=== PATIENT | male | born 1935 | race Caucasian/White ===

== ENCOUNTER 2018-01-30 10:13 | Inpatient (IN) ==
[2018-01-30] MEDS: ALBUTEROL 2.5 MG/3 ML NEB RESP TX SCH ×3 (11:15→11:55)
[2018-01-30 11:27] LABS: Basophils # 0.1 10*3/uL (0.0-0.2); Basophils % 0.8 % (0.0-0.8); Eosinophils # 0.1 10*3/uL (0.0-0.87); Eosinophils % 1.1 % (0.00-10.9); Hematocrit 28.2 VOL% (42.0-52.0); Hemoglobin 8.7 GM/DL (14.0-18.0); Immature Granulocytes % 0.6 %; Immature Granulocytes Absolute 0.05 #; Lymphocytes % 12.1 % (21.2-54.2); Mean Corpuscular HGB Conc 30.9 GM/DL (32-36); Mean Corpuscular Hemoglobin 28 PG (27-34); Mean Corpuscular Volume 91.6 FL (87-102); Mean Platelet Volume 11.1 FL (9.6-12.0); Monocytes # 0.6 10*3/uL (0.11-0.8); Neutrophils # 6.2 10*3/uL (1.4-7.4); Neutrophils % 78.4 % (38.7-73.9); Platelet Count 212 T/CUMM (130-400); Red Blood Count 3.08 MC/CUMM (3.8-5.5); White Blood Count 7.9 T/CUMM (4-12)
[2018-01-30 12:01] LABS: Bilirubin,Total 0.5 MG/DL (0.2-1.0); Calcium 9.6 MG/DL (8.5-10.1); Osmolality,Calculated 301.1 MOS/KG (273-304); Potassium 4.1 MMOL/L (3.5-5.1); Total Protein 6.1 G/DL (6.4-8.3)
[2018-01-30 12:20] LABS: Apearance,Urine CLEAR (Clear); Bilirubin,Urine Negative (Negative); Blood, Urine Moderate mg/dL (Negative); Glucose,Urine (UA) >=500 mg/dL (Negative); Ketones,Urine Negative (Negative); Nitrite,Urine Negative (Negative); Protein,Urine 100 MG/DL; Urine Color Straw (Yellow); Urine Specific Gravity 1.007 (1.001-1.035); Urine Urobilinogen < 2.0 EU/DL (0.2-1.0); WBC,Urine 1 /HPF (0-6)
[2018-01-30] MEDS ORDERED: FUROSEMIDE 40 MG/4 ML VIAL IV STA (12:54)
[2018-01-30] MEDS ORDERED: PANTOPRAZOLE 40 MG TABLET PO SCH (13:30)
[2018-01-30] MEDS ORDERED: MAGNESIUM SULF RIDER 4 GM in PREMIX 1 EACH IV PRN (13:42)
[2018-01-30] MEDS ORDERED: MAGNESIUM SULF RIDER 2 GM in PREMIX 1 EACH IV PRN (13:42)
[2018-01-30] MEDS ORDERED: POTASSIUM CHLORIDE RIDER 10 MEQ in PREMIX 1 EACH IV PRN (13:42)
[2018-01-30] MEDS ORDERED: POTASSIUM CHLORIDE 20 MEQ TABLET PO PRN (13:42)
[2018-01-30 14:28] LABS: % Iron Saturation 9.6 % (18-50); Ferritin 23.9 ng/ml (26-388)
[2018-01-30] MEDS ORDERED: ALBUTEROL 2.5 MG/3 ML NEB RESP TX PRN (14:30)
[2018-01-30 14:44] LABS: Folate 12.5 NG/ML (5.4-24.0)
[2018-01-30] MEDS ORDERED: CARVEDILOL 12.5 MG TABLET PO SCH (17:00)
[2018-01-30] MEDS: FUROSEMIDE 100 MG/10 ML VIAL IV SCH (17:22)
[2018-01-30] MEDS: methylPREDNISolone SOD SUC 40 MG/1 ML VIAL IV SCH ×2 (17:23→22:50)
[2018-01-30] MEDS: CARVEDILOL 25 MG TABLET PO SCH (17:23)
[2018-01-30] MEDS: ASPIRIN EC 81 MG TABLET PO SCH (17:24)
[2018-01-30] MEDS: INSULIN ASPART PROTAMINE/ASPART 70/30 100 UNIT/ML SUBCUT SCH (18:18)
[2018-01-30] MEDS: ALBUTEROL/IPRATROPIUM 3 ML NEB RESP TX SCH (18:59)
[2018-01-30] MEDS ORDERED: ENOXAPARIN 30 MG/0.3 ML SYRINGE SUBCUT SCH (21:00)
[2018-01-30] MEDS ORDERED: hydrALAZINE 25 MG TABLET PO SCH (21:00)
[2018-01-30] MEDS: ROSUVASTATIN 20 MG TABLET PO SCH (22:54)
[2018-01-30] MEDS: PROBENECID 500 MG TABLET PO SCH (22:54)
[2018-01-30] MEDS: hydrALAZINE 25 MG TABLET PO SCH (22:55)
[2018-01-31] MEDS: ALBUTEROL/IPRATROPIUM 3 ML NEB RESP TX SCH ×4 (00:43→19:37)
[2018-01-31] MEDS: methylPREDNISolone SOD SUC 40 MG/1 ML VIAL IV SCH ×4 (04:20→22:00)
[2018-01-31 05:19] LABS: Basophils % 0.1 % (0.0-0.8); Hematocrit 29.7 VOL% (42.0-52.0); Hemoglobin 9.1 GM/DL (14.0-18.0); Immature Granulocytes % 0.5 %; Immature Granulocytes Absolute 0.05 #; Lymphocytes # 0.5 10*3/uL (1.4-4.0); Lymphocytes % 5.3 % (21.2-54.2); Mean Corpuscular HGB Conc 30.6 GM/DL (32-36); Mean Corpuscular Hemoglobin 28 PG (27-34); Mean Corpuscular Volume 90.5 FL (87-102); Mean Platelet Volume 11.4 FL (9.6-12.0); Monocytes # 0.1 10*3/uL (0.11-0.8); Neutrophils # 8.7 10*3/uL (1.4-7.4); Neutrophils % 93.1 % (38.7-73.9); Platelet Count 219 T/CUMM (130-400); Red Blood Count 3.28 MC/CUMM (3.8-5.5); Red Cell Distribution Width 14.7 % (9.3-17.3); White Blood Count 9.3 T/CUMM (4-12)
[2018-01-31 05:52] LABS: Calcium 9.6 MG/DL (8.5-10.1); Osmolality,Calculated 302.4 MOS/KG (273-304)
[2018-01-31 05:56] LABS: Risk Ratio 2.13; VLDL CHOLESTEROL 9.8 MG/DL
[2018-01-31 06:02] LABS: Bilirubin,Total 0.8 MG/DL (0.2-1.0); Calcium 9.9 MG/DL (8.5-10.1); Osmolality,Calculated 301.4 MOS/KG (273-304); Thyroid Stimulating Hormone 0.702 uIU/ml (0.358-3.74); Total Protein 6.7 G/DL (6.4-8.3)
[2018-01-31 06:19] LABS: Lymphocytes 7 % (20-55); Segmented Neutrophils 92 % (50-85)
[2018-01-31 06:20] LABS: Platelet Estimate Normal; Total Cells Counted 100
[2018-01-31] MEDS ORDERED: CYANOCOBALAMIN 1000 MCG/1 ML VIAL IM ONE (09:38)
[2018-01-31] MEDS ORDERED: cefTRIAXone 1,000 MG in SYRINGE 1 EACH IV SCH (10:00)
[2018-01-31] MEDS: FUROSEMIDE 100 MG/10 ML VIAL IV SCH ×2 (10:42→16:22)
[2018-01-31] MEDS: ENOXAPARIN 120 MG/0.8 ML SYRINGE SUBCUT SCH (10:42)
[2018-01-31] MEDS: PROBENECID 500 MG TABLET PO SCH ×2 (10:42→22:52)
[2018-01-31] MEDS: ASPIRIN EC 81 MG TABLET PO SCH (10:43)
[2018-01-31] MEDS: PANTOPRAZOLE 40 MG TABLET PO SCH (10:43)
[2018-01-31] MEDS: ISOSORBIDE MONONITRATE 30 MG TABLET PO SCH (10:43)
[2018-01-31] MEDS: hydrALAZINE 25 MG TABLET PO SCH ×3 (10:44→22:52)
[2018-01-31] MEDS: INSULIN ASPART PROTAMINE/ASPART 70/30 100 UNIT/ML SUBCUT SCH ×2 (10:44→16:28)
[2018-01-31] MEDS: CARVEDILOL 25 MG TABLET PO SCH ×2 (10:44→16:28)
[2018-01-31] MEDS ORDERED: AZITHROMYCIN INJ 500 MG in SODIUM CHLORIDE 0.9% 250 ML IV SCH (11:00)
[2018-01-31] MEDS: FLUTICASONE 50 MCG NASAL SPRAY 16 GM BOTTLE BOTH NARES SCH ×2 (11:04→22:52)
[2018-01-31] MEDS: MONTELUKAST 10 MG TABLET PO SCH (11:04)
[2018-01-31] MEDS ORDERED: ZALEPLON 5 MG CAPSULE PO PRN (17:49)
[2018-01-31] MEDS: guaiFENesin 200 MG/10 ML UDCUP PO PRN (18:21)
[2018-01-31] MEDS: ROSUVASTATIN 20 MG TABLET PO SCH (22:52)
[2018-01-31] MEDS: FERROUS SULFATE 325 MG TABLET PO SCH (22:53)
[2018-02-01] MEDS: guaiFENesin 200 MG/10 ML UDCUP PO PRN ×3 (01:16→08:51)
[2018-02-01] MEDS: ALBUTEROL/IPRATROPIUM 3 ML NEB RESP TX SCH ×2 (01:41→07:23)
[2018-02-01 04:33] LABS: Calcium 9.5 MG/DL (8.5-10.1); Osmolality,Calculated 301.4 MOS/KG (273-304); Potassium 4.1 MMOL/L (3.5-5.1)
[2018-02-01] MEDS: methylPREDNISolone SOD SUC 40 MG/1 ML VIAL IV SCH (04:38)
[2018-02-01 07:17] LABS: Basophils % 0.1 % (0.0-0.8); Hematocrit 28.8 VOL% (42.0-52.0); Hemoglobin 8.9 GM/DL (14.0-18.0); Immature Granulocytes % 0.9 %; Immature Granulocytes Absolute 0.15 #; Lymphocytes # 0.6 10*3/uL (1.4-4.0); Lymphocytes % 3.3 % (21.2-54.2); Mean Corpuscular HGB Conc 30.9 GM/DL (32-36); Mean Corpuscular Hemoglobin 28 PG (27-34); Mean Corpuscular Volume 90.3 FL (87-102); Mean Platelet Volume 11.8 FL (9.6-12.0); Monocytes # 0.5 10*3/uL (0.11-0.8); Monocytes % 2.9 % (1.7-12.7); Neutrophils # 15.5 10*3/uL (1.4-7.4); Neutrophils % 92.8 % (38.7-73.9); Platelet Count 236 T/CUMM (130-400); Red Blood Count 3.19 MC/CUMM (3.8-5.5); White Blood Count 16.7 T/CUMM (4-12)
[2018-02-01 07:39] LABS: Band Neutrophils 1 % (0-10); Hypochromasia 1+; Lymphocytes 4 % (20-55); Microcytosis Slight; Segmented Neutrophils 91 % (50-85); Total Cells Counted 100
[2018-02-01 07:40] LABS: Acanthocytes Few; Ovalocytes Few; Platelet Estimate Normal
[2018-02-01 08:19] VITALS: BP 161/73
[2018-02-01] MEDS: FUROSEMIDE 100 MG/10 ML VIAL IV SCH (08:51)
[2018-02-01] MEDS: ASPIRIN EC 81 MG TABLET PO SCH (08:52)
[2018-02-01] MEDS: ISOSORBIDE MONONITRATE 30 MG TABLET PO SCH (08:52)
[2018-02-01] MEDS: CARVEDILOL 25 MG TABLET PO SCH (08:52)
[2018-02-01] MEDS: hydrALAZINE 25 MG TABLET PO SCH (08:52)
[2018-02-01] MEDS: FERROUS SULFATE 325 MG TABLET PO SCH (08:52)
[2018-02-01] MEDS: MONTELUKAST 10 MG TABLET PO SCH (08:52)
[2018-02-01] MEDS: PANTOPRAZOLE 40 MG TABLET PO SCH (08:52)
[2018-02-01] MEDS: PROBENECID 500 MG TABLET PO SCH (08:53)
[2018-02-01] MEDS: INSULIN ASPART PROTAMINE/ASPART 70/30 100 UNIT/ML SUBCUT SCH (08:54)
[2018-02-01] MEDS: ENOXAPARIN 120 MG/0.8 ML SYRINGE SUBCUT SCH (08:54)
[2018-02-01] MEDS: FLUTICASONE 50 MCG NASAL SPRAY 16 GM BOTTLE BOTH NARES SCH (08:54)
== END 2018-02-01 09:37 | disposition home or self-care (01) | DRG 291 ==
LOC: N.ED 10:13 → N.EDINP 13:26 → N.2E 14:00
PROVIDERS: ADMIT Family Medicine; ATTEND Family Medicine

== ENCOUNTER 2018-08-17 10:37 | Observation (INO) ==
[2018-08-17] MEDS ORDERED: FUROSEMIDE 100 MG/10 ML VIAL IV STA (11:28)
[2018-08-17] MEDS ORDERED: methylPREDNISolone SOD SUC 125 MG/2 ML VIAL IV STA (11:28)
[2018-08-17] MEDS ORDERED: ONDANSETRON 4 MG/2 ML VIAL IV STA (11:28)
[2018-08-17] MEDS ORDERED: ALBUTEROL/IPRATROPIUM 3 ML NEB RESP TX STA (11:28)
[2018-08-17 11:37] LABS: Basophils # 0.1 10*3/uL (0.0-0.2); Basophils % 0.4 % (0.0-0.8); Eosinophils # 0.1 10*3/uL (0.0-0.87); Eosinophils % 0.9 % (0.00-10.9); Hematocrit 39.7 VOL% (42.0-52.0); Hemoglobin 12.8 GM/DL (14.0-18.0); Immature Granulocytes % 0.8 %; Lymphocytes # 0.9 10*3/uL (1.4-4.0); Lymphocytes % 6.7 % (21.2-54.2); Mean Corpuscular HGB Conc 32.2 GM/DL (32-36); Mean Corpuscular Volume 88.6 FL (87-102); Mean Platelet Volume 11.2 FL (9.6-12.0); Monocytes % 7.8 % (1.7-12.7); Neutrophils % 83.4 % (38.7-73.9); Platelet Count 256 T/CUMM (130-400); Red Blood Count 4.48 MC/CUMM (3.8-5.5); Red Cell Distribution Width 14.9 % (9.3-17.3); White Blood Count 12.9 T/CUMM (4-12)
[2018-08-17 11:43] LABS: PT Patient Result 10.4 SECS
[2018-08-17 11:50] LABS: Albumin 3.2 G/DL (3.4-5.0); Calcium 10.1 MG/DL (8.5-10.1); Osmolality,Calculated 305.5 MOS/KG (273-304); Total Protein 6.3 G/DL (6.4-8.3)
[2018-08-17 12:32] LABS: Apearance,Urine Slightly Hazy (Clear); Bacteria,Urine Occasional /HPF (Few); Bilirubin,Urine Negative (Negative); Blood, Urine Moderate mg/dL (Negative); Glucose,Urine (UA) Negative (Negative); Ketones,Urine Negative (Negative); Nitrite,Urine Negative (Negative); Protein,Urine 100 MG/DL; RBC,Urine 1 /HPF (0-4); Squamous Epithelial Cell,Urine Occasional /HPF (0-10); Urine Color Yellow (Yellow); Urine Urobilinogen < 2.0 EU/DL (0.2-1.0); WBC,Urine 2 /HPF (0-6)
[2018-08-17] MEDS ORDERED: DEXTROSE 50% 25 GM/50 ML VIAL IV STA (13:18)
[2018-08-17] MEDS ORDERED: DEXTROSE 50% 25 GM/50 ML SYRINGE IV ONE (13:19)
[2018-08-17 13:26] LABS: ABG Base Excess -12.1 MMOL/L (-2.5-2.5); ABG HCO3 15.1 MMOL/L (20-26); ABG Oxygen Saturation 98.2 % (95-100); ABG PCO2 24.9 MM HG (35-48); ABG PH 7.316 (7.35-7.45); ABG TCO2 11.3 MMOL/L (23-27)
[2018-08-17] MEDS ORDERED: ALBUTEROL 2.5 MG/3 ML NEB RESP TX PRN (13:59)
[2018-08-17] MEDS ORDERED: IRON SUCROSE 200 MG IV SCH (14:00)
[2018-08-17] MEDS ORDERED: LEVALBUTEROL 0.31 MG/3 ML NEB RESP TX PRN (15:22)
[2018-08-17] MEDS ORDERED: SODIUM CHLORIDE 0.45% 1,000 ML IV SCH (15:30)
[2018-08-17] MEDS ORDERED: guaiFENesin/DM ER 600-30 MG TABLET PO PRN (15:49)
[2018-08-17] MEDS ORDERED: ONDANSETRON 4 MG/2 ML VIAL IV PRN (15:49)
[2018-08-17 16:35] LABS: CKMB % 6.2 %
[2018-08-17 16:37] LABS: Troponin I 0.119 NG/ML (0.00-0.045)
[2018-08-17 16:40] LABS: Risk Ratio 2.42; Thyroid Stimulating Hormone 1.13 uIU/ml (0.358-3.74); VLDL CHOLESTEROL 14.6 MG/DL
[2018-08-17] MEDS: CARVEDILOL 12.5 MG TABLET PO SCH (18:34)
[2018-08-17] MEDS ORDERED: DEXTROSE 50% 25 GM/50 ML SYRINGE IV PRN (18:43)
[2018-08-17] MEDS ORDERED: GLUCAGON 1 MG VIAL IM PRN (18:43)
[2018-08-17] MEDS: traZODone 50 MG TABLET PO PRN (20:38)
[2018-08-17] MEDS: APIXABAN 2.5 MG TABLET PO SCH (20:38)
[2018-08-17] MEDS: ROSUVASTATIN 10 MG TABLET PO SCH (20:38)
[2018-08-17] MEDS: FLUTICASONE 50 MCG NASAL SPRAY 16 GM BOTTLE BOTH NARES SCH (20:39)
[2018-08-17] MEDS: FUROSEMIDE 40 MG TABLET PO SCH (20:39)
[2018-08-18] MEDS ORDERED: ALUMINUM/MAGNES/SIMETH MAX STR 30 ML UDCUP PO PRN (01:53)
[2018-08-18] MEDS ORDERED: POTASSIUM CHLORIDE 20 MEQ TABLET PO PRN (02:15)
[2018-08-18] MEDS ORDERED: MAGNESIUM SULF RIDER 2 GM in PREMIX 1 EACH IV PRN (02:18)
[2018-08-18] MEDS ORDERED: MAGNESIUM SULF RIDER 4 GM in PREMIX 1 EACH IV PRN (02:18)
[2018-08-18 05:03] LABS: Hemoglobin 11.3 GM/DL (14.0-18.0); Immature Granulocytes % 0.7 %; Immature Granulocytes Absolute 0.07 #; Lymphocytes # 0.3 10*3/uL (1.4-4.0); Lymphocytes % 3.4 % (21.2-54.2); Mean Corpuscular HGB Conc 33.2 GM/DL (32-36); Mean Corpuscular Volume 87.2 FL (87-102); Mean Platelet Volume 11.6 FL (9.6-12.0); Monocytes % 3.2 % (1.7-12.7); Neutrophils % 92.7 % (38.7-73.9); Platelet Count 206 T/CUMM (130-400); Red Cell Distribution Width 14.9 % (9.3-17.3); White Blood Count 9.8 T/CUMM (4-12)
[2018-08-18 05:30] LABS: Hypochromasia Slight; Lymphocytes 6 % (20-55); Platelet Estimate Normal; Segmented Neutrophils 91 % (50-85); Total Cells Counted 100
[2018-08-18 05:31] LABS: Polychromasia Few
[2018-08-18 05:46] LABS: Albumin 2.7 G/DL (3.4-5.0); Bilirubin,Total 1.1 MG/DL (0.2-1.0); Calcium 9.8 MG/DL (8.5-10.1); Osmolality,Calculated 316.5 MOS/KG (273-304); Total Protein 5.8 G/DL (6.4-8.3)
[2018-08-18 05:48] LABS: CKMB % 8.5 %
[2018-08-18 05:55] LABS: Troponin I 0.099 NG/ML (0.00-0.045)
[2018-08-18] MEDS ORDERED: ALBUTEROL 0.63 MG/3 ML NEB RESP TX PRN (07:30)
[2018-08-18] MEDS ORDERED: INSULIN REGULAR 100 UNIT/ML SUBCUT SCH (08:30)
[2018-08-18] MEDS: APIXABAN 2.5 MG TABLET PO SCH ×2 (08:52→21:04)
[2018-08-18] MEDS: CARVEDILOL 12.5 MG TABLET PO SCH ×2 (08:52→18:24)
[2018-08-18] MEDS: FUROSEMIDE 40 MG TABLET PO SCH ×2 (08:53→21:04)
[2018-08-18] MEDS: FLUTICASONE 50 MCG NASAL SPRAY 16 GM BOTTLE BOTH NARES SCH ×2 (08:55→21:05)
[2018-08-18] MEDS ORDERED: LEVOFLOXACIN 250 MG TABLET PO SCH (09:00)
[2018-08-18] MEDS: SODIUM BICARB INJ 100 MEQ in SODIUM CHLORIDE 0.45% 1,000 ML IV SCH (10:04)
[2018-08-18] MEDS: PANTOPRAZOLE 40 MG TABLET PO SCH (10:09)
[2018-08-18] MEDS: INSULIN ASPART PROTAMINE/ASPART 70/30 100 UNIT/ML SUBCUT SCH (10:15)
[2018-08-18] MEDS: INSULIN LISPRO 100 UNIT/ML SUBCUT SCH ×3 (12:00→21:04)
[2018-08-18] MEDS ORDERED: INSULIN ASPART PROTAMINE/ASPART 70/30 100 UNIT/ML SUBCUT SCH (17:00)
[2018-08-18] MEDS: ASPIRIN EC 81 MG TABLET PO SCH (18:24)
[2018-08-18] MEDS: ROSUVASTATIN 10 MG TABLET PO SCH (21:04)
[2018-08-18] MEDS: traZODone 50 MG TABLET PO PRN (21:05)
[2018-08-19] MEDS: PANTOPRAZOLE 40 MG TABLET PO SCH (08:51)
[2018-08-19] MEDS: CARVEDILOL 12.5 MG TABLET PO SCH (08:51)
[2018-08-19] MEDS: ASPIRIN EC 81 MG TABLET PO SCH (08:51)
[2018-08-19] MEDS: APIXABAN 2.5 MG TABLET PO SCH (08:52)
[2018-08-19] MEDS: FUROSEMIDE 40 MG TABLET PO SCH (08:52)
[2018-08-19] MEDS: SODIUM BICARB INJ 100 MEQ in SODIUM CHLORIDE 0.45% 1,000 ML IV SCH (08:52)
[2018-08-19] MEDS: INSULIN ASPART PROTAMINE/ASPART 70/30 100 UNIT/ML SUBCUT SCH (08:53)
[2018-08-19] MEDS: INSULIN LISPRO 100 UNIT/ML SUBCUT SCH ×2 (08:53→12:07)
[2018-08-19] MEDS: FLUTICASONE 50 MCG NASAL SPRAY 16 GM BOTTLE BOTH NARES SCH (08:58)
[2018-08-19 09:19] LABS: Calcium 9.6 MG/DL (8.5-10.1); Osmolality,Calculated 318.8 MOS/KG (273-304)
[2018-08-19 16:07] VITALS: BP 141/79
[2018-08-19] MEDS ORDERED: CARVEDILOL 25 MG TABLET PO SCH (17:00)
[2018-09-11] MEDS ORDERED: IRON SUCROSE 200 MG in SODIUM CHLORIDE 0.9% 100 ML IV SCH (09:00)
== END 2018-08-19 17:18 | disposition home or self-care (01) ==
LOC: N.EDINP 10:37 → N.ED 10:37 → N.2E 17:51
PROVIDERS: ADMIT Internal Medicine; ATTEND Internal Medicine

== ENCOUNTER 2018-12-10 12:27 | Inpatient (IN) ==
[2018-12-10 12:59] LABS: Basophils # 0.1 10*3/uL (0.0-0.2); Basophils % 0.7 % (0.0-0.8); Eosinophils # 0.2 10*3/uL (0.0-0.87); Eosinophils % 1.3 % (0.00-10.9); Hematocrit 35.1 VOL% (42.0-52.0); Hemoglobin 11.4 GM/DL (14.0-18.0); Immature Granulocytes % 0.7 %; Immature Granulocytes Absolute 0.08 #; Lymphocytes # 1.2 10*3/uL (1.4-4.0); Mean Corpuscular HGB Conc 32.5 GM/DL (32-36); Mean Corpuscular Volume 92.9 FL (87-102); Mean Platelet Volume 10.5 FL (9.6-12.0); Monocytes % 6.5 % (1.7-12.7); Neutrophils % 80.8 % (38.7-73.9); Platelet Count 284 T/CUMM (130-400); Red Blood Count 3.78 MC/CUMM (3.8-5.5); Red Cell Distribution Width 13.2 % (9.3-17.3)
[2018-12-10 13:15] LABS: Albumin 3.4 G/DL (3.4-5.0); Bilirubin,Total 0.5 MG/DL (0.2-1.0); Calcium 10.4 MG/DL (8.5-10.1); Osmolality,Calculated 298.7 MOS/KG (273-304); Total Protein 6.8 G/DL (6.4-8.3)
[2018-12-10] MEDS ORDERED: ONDANSETRON 4 MG/2 ML VIAL IV STA (13:22)
[2018-12-10] MEDS ORDERED: DEXTROSE 50% 25 GM/50 ML VIAL IV PRN (14:28)
[2018-12-10] MEDS ORDERED: GLUCAGON 1 MG VIAL IM PRN ×2 (14:28→14:56)
[2018-12-10] MEDS ORDERED: LACTULOSE 20 GM/30 ML UDCUP PO PRN (14:28)
[2018-12-10] MEDS ORDERED: ONDANSETRON 4 MG/2 ML VIAL IV PRN (14:28)
[2018-12-10 14:56] LABS: Risk Ratio 2.77
[2018-12-10] MEDS ORDERED: DEXTROSE 10% 25 GM/250 ML BAG IV PRN (14:56)
[2018-12-10] MEDS ORDERED: INSULIN ASPART PROTAMINE/ASPART 70/30 100 UNIT/ML SUBCUT SCH ×2 (17:00)
[2018-12-10] MEDS: SODIUM CHLORIDE 0.9% 1,000 ML IV SCH (17:51)
[2018-12-10] MEDS: CARVEDILOL 12.5 MG TABLET PO SCH (17:51)
[2018-12-10] MEDS: INSULIN REGULAR 100 UNIT/ML SUBCUT SCH ×2 (17:51→21:54)
[2018-12-10] MEDS ORDERED: ALBUTEROL 2.5 MG/3 ML NEB RESP TX PRN (19:00)
[2018-12-10 19:16] LABS: Apearance,Urine CLEAR (Clear); Bacteria,Urine Occasional /HPF (Few); Bilirubin,Urine Negative (Negative); Blood, Urine Small mg/dL (Negative); Glucose,Urine (UA) >=500 mg/dL (Negative); Ketones,Urine Negative (Negative); Nitrite,Urine Negative (Negative); Protein,Urine >=500 MG/DL; RBC,Urine 3 /HPF (0-4); Squamous Epithelial Cell,Urine Occasional /HPF (0-10); Urine Color Yellow (Yellow); Urine Specific Gravity 1.013 (1.001-1.035); Urine Urobilinogen < 2.0 EU/DL (0.2-1.0); WBC,Urine 3 /HPF (0-6)
[2018-12-10] MEDS ORDERED: traZODone 50 MG TABLET PO SCH (21:00)
[2018-12-10] MEDS ORDERED: ROSUVASTATIN 10 MG TABLET PO SCH (21:00)
[2018-12-10] MEDS: APIXABAN 2.5 MG TABLET PO SCH (22:41)
[2018-12-11] MEDS ORDERED: SODIUM CHLORIDE 0.65% NASAL SPRAY 45 ML BOTTLE BOTH NARES PRN (02:35)
[2018-12-11 06:08] LABS: Basophils # 0.1 10*3/uL (0.0-0.2); Basophils % 0.4 % (0.0-0.8); Eosinophils # 0.2 10*3/uL (0.0-0.87); Eosinophils % 1.9 % (0.00-10.9); Hematocrit 31.5 VOL% (42.0-52.0); Hemoglobin 10.3 GM/DL (14.0-18.0); Immature Granulocytes % 0.6 %; Immature Granulocytes Absolute 0.07 #; Lymphocytes # 1.5 10*3/uL (1.4-4.0); Lymphocytes % 12.7 % (21.2-54.2); Mean Corpuscular HGB Conc 32.7 GM/DL (32-36); Mean Corpuscular Volume 93.8 FL (87-102); Mean Platelet Volume 10.5 FL (9.6-12.0); Monocytes % 6.1 % (1.7-12.7); Neutrophils % 78.3 % (38.7-73.9); Platelet Count 229 T/CUMM (130-400); Red Blood Count 3.36 MC/CUMM (3.8-5.5); Red Cell Distribution Width 13.4 % (9.3-17.3); White Blood Count 11.9 T/CUMM (4-12)
[2018-12-11] MEDS: SODIUM CHLORIDE 0.9% 1,000 ML IV SCH (06:08)
[2018-12-11 06:45] LABS: Calcium 9.9 MG/DL (8.5-10.1); Osmolality,Calculated 306.7 MOS/KG (273-304)
[2018-12-11] MEDS ORDERED: INSULIN ASPART PROTAMINE/ASPART 70/30 100 UNIT/ML SUBCUT SCH ×2 (08:00)
[2018-12-11] MEDS: CARVEDILOL 12.5 MG TABLET PO SCH ×2 (08:43→18:56)
[2018-12-11] MEDS: APIXABAN 2.5 MG TABLET PO SCH (08:43)
[2018-12-11] MEDS: INSULIN REGULAR 100 UNIT/ML SUBCUT SCH ×3 (08:44→18:55)
[2018-12-11] MEDS ORDERED: PANTOPRAZOLE 40 MG TABLET PO SCH (09:00)
[2018-12-11] MEDS ORDERED: ASPIRIN EC 81 MG TABLET PO SCH (13:32)
[2018-12-11 16:41] VITALS: BP 192/82
== END 2018-12-11 17:36 | disposition home or self-care (01) | DRG 312 ==
LOC: EDBD → EDUNIT# → N.ED 12:27 → N.EDINP 12:27 → N.TELEN 15:12
PROVIDERS: ADMIT Hospitalist; ATTEND Hospitalist

== ENCOUNTER 2019-02-21 02:23 | Inpatient (IN) ==
[2019-02-21] MEDS ORDERED: ONDANSETRON 4 MG/2 ML VIAL IV STA (02:59)
[2019-02-21] MEDS ORDERED: SODIUM CHLORIDE 0.9% 1,000 ML IV STA (02:59)
[2019-02-21] MEDS ORDERED: KETOROLAC 30 MG/1 ML VIAL IV STA (02:59)
[2019-02-21] MEDS ORDERED: HYDROmorphone 2 MG/1 ML VIAL IV STA (03:29)
[2019-02-21 03:54] LABS: Basophils # 0.1 10*3/uL (0.0-0.2); Basophils % 0.5 % (0.0-0.8); Eosinophils # 0.2 10*3/uL (0.0-0.87); Eosinophils % 1.3 % (0.00-10.9); Hematocrit 33.8 VOL% (42.0-52.0); Hemoglobin 10.9 GM/DL (14.0-18.0); Immature Granulocytes % 0.5 %; Immature Granulocytes Absolute 0.07 #; Lymphocytes # 0.8 10*3/uL (1.4-4.0); Lymphocytes % 6.3 % (21.2-54.2); Mean Corpuscular HGB Conc 32.2 GM/DL (32-36); Mean Corpuscular Volume 89.7 FL (87-102); Mean Platelet Volume 10.8 FL (9.6-12.0); Monocytes % 5.8 % (1.7-12.7); Neutrophils % 85.6 % (38.7-73.9); Platelet Count 262 T/CUMM (130-400); Red Blood Count 3.77 MC/CUMM (3.8-5.5); Red Cell Distribution Width 14.6 % (9.3-17.3); White Blood Count 12.9 T/CUMM (4-12)
[2019-02-21 04:21] LABS: Albumin 3.2 G/DL (3.4-5.0); Bilirubin,Total 0.9 MG/DL (0.2-1.0); Calcium 10.5 MG/DL (8.5-10.1); Osmolality,Calculated 288.1 MOS/KG (273-304); Total Protein 6.9 G/DL (6.4-8.3)
[2019-02-21 05:38] LABS: Amorphous Crystals,Urine Occasional /HPF (Few); Apearance,Urine CLEAR (Clear); Bilirubin,Urine Negative (Negative); Blood, Urine Small mg/dL (Negative); Glucose,Urine (UA) 150 mg/dL (Negative); Ketones,Urine Negative (Negative); Mucus,Urine Occasional /LPF (Occasional); Nitrite,Urine Negative (Negative); Protein,Urine 100 MG/DL; RBC,Urine 1 /HPF (0-4); Squamous Epithelial Cell,Urine Occasional /HPF (0-10); Urine Color Yellow (Yellow); Urine Specific Gravity 1.012 (1.001-1.035); Urine Urobilinogen < 2.0 EU/DL (0.2-1.0); WBC,Urine 1 /HPF (0-6)
[2019-02-21] MEDS ORDERED: ONDANSETRON 4 MG/2 ML VIAL IV PRN (05:38)
[2019-02-21] MEDS ORDERED: DEXTROSE 50% 25 GM/50 ML VIAL IV PRN (05:48)
[2019-02-21] MEDS ORDERED: GLUCAGON 1 MG VIAL IM PRN (05:48)
[2019-02-21] MEDS: PIPERACILLIN/TAZOBACTAM 3,375 MG in SODIUM CHLORIDE 0.9% 100 ML IV SCH ×2 (08:30→17:56)
[2019-02-21] MEDS ORDERED: INFLUENZA VIRUS VACCINE 0.5 ML SYRINGE IM ONE (09:58)
[2019-02-21] MEDS: INSULIN REGULAR 100 UNIT/ML SUBCUT SCH ×5 (10:27→20:18)
[2019-02-21] MEDS ORDERED: ALBUTEROL 2.5 MG/3 ML NEB RESP TX PRN (15:11)
[2019-02-21] MEDS ORDERED: DARBEPOETIN ALFA 200 MCG/ML VIAL SUBCUT SCH (15:30)
[2019-02-21] MEDS: carvediloL 12.5 MG TABLET PO SCH (16:37)
[2019-02-21] MEDS: ROSUVASTATIN 10 MG TABLET PO SCH (20:16)
[2019-02-21] MEDS: traZODone 50 MG TABLET PO SCH (20:17)
[2019-02-21] MEDS: HYDROmorphone 2 MG/1 ML VIAL IV PRN (20:17)
[2019-02-21] MEDS ORDERED: PROBENECID 500 MG TABLET PO SCH (21:00)
[2019-02-22] MEDS: traMADol 50 MG TABLET PO PRN (01:23)
[2019-02-22 04:52] LABS: Basophils # 0.1 10*3/uL (0.0-0.2); Basophils % 0.3 % (0.0-0.8); Eosinophils # 0.1 10*3/uL (0.0-0.87); Eosinophils % 0.3 % (0.00-10.9); Hematocrit 32.7 VOL% (42.0-52.0); Hemoglobin 10.3 GM/DL (14.0-18.0); Immature Granulocytes % 0.6 %; Immature Granulocytes Absolute 0.12 #; Lymphocytes # 0.7 10*3/uL (1.4-4.0); Lymphocytes % 3.4 % (21.2-54.2); Mean Corpuscular HGB Conc 31.5 GM/DL (32-36); Mean Corpuscular Volume 91.3 FL (87-102); Mean Platelet Volume 10.8 FL (9.6-12.0); Monocytes % 8.1 % (1.7-12.7); Neutrophils % 87.3 % (38.7-73.9); Platelet Count 231 T/CUMM (130-400); Red Blood Count 3.58 MC/CUMM (3.8-5.5); Red Cell Distribution Width 14.8 % (9.3-17.3); White Blood Count 19.7 T/CUMM (4-12)
[2019-02-22 05:22] LABS: Band Neutrophils 4 % (0-10); Lymphocytes 4 % (20-55); Segmented Neutrophils 85 % (50-85); Total Cells Counted 100
[2019-02-22 05:23] LABS: Acanthocytes Few; Hypochromasia Slight; Microcytosis Slight; Ovalocytes Slight; Platelet Estimate Normal
[2019-02-22 05:24] LABS: Albumin 2.9 G/DL (3.4-5.0); Bilirubin,Total 1.2 MG/DL (0.2-1.0); Calcium 9.9 MG/DL (8.5-10.1); Osmolality,Calculated 297.7 MOS/KG (273-304); Total Protein 6.5 G/DL (6.4-8.3)
[2019-02-22] MEDS: PIPERACILLIN/TAZOBACTAM 3,375 MG in SODIUM CHLORIDE 0.9% 100 ML IV SCH ×2 (05:42→18:32)
[2019-02-22] MEDS: HYDROmorphone 2 MG/1 ML VIAL IV PRN (05:44)
[2019-02-22] MEDS ORDERED: MIDAZOLAM 2 MG/2 ML VIAL IV ONE (08:50)
[2019-02-22] MEDS ORDERED: fentaNYL 100 MCG/2 ML VIAL IV ONE (08:50)
[2019-02-22 09:13] LABS: INR 1.2; PT Patient Result 12.5 SECS (9.6-12.2)
[2019-02-22] MEDS ORDERED: MAGNESIUM SULF RIDER 2 GM in PREMIX 1 EACH IV ONE (09:39)
[2019-02-22] MEDS: INSULIN REGULAR 100 UNIT/ML SUBCUT SCH ×3 (14:04→22:11)
[2019-02-22] MEDS: PANTOPRAZOLE 40 MG TABLET PO SCH (14:11)
[2019-02-22] MEDS: FUROSEMIDE 40 MG TABLET PO SCH (14:11)
[2019-02-22] MEDS: carvediloL 12.5 MG TABLET PO SCH ×2 (14:11→18:32)
[2019-02-22] MEDS: traZODone 50 MG TABLET PO SCH (21:14)
[2019-02-22] MEDS: ROSUVASTATIN 10 MG TABLET PO SCH (21:14)
[2019-02-23] MEDS: PIPERACILLIN/TAZOBACTAM 3,375 MG in SODIUM CHLORIDE 0.9% 100 ML IV SCH ×2 (05:19→18:11)
[2019-02-23 06:08] LABS: Basophils % 0.3 % (0.0-0.8); Eosinophils # 0.2 10*3/uL (0.0-0.87); Eosinophils % 1.7 % (0.00-10.9); Hematocrit 29.7 VOL% (42.0-52.0); Hemoglobin 9.4 GM/DL (14.0-18.0); Immature Granulocytes % 0.6 %; Immature Granulocytes Absolute 0.07 #; Lymphocytes # 0.9 10*3/uL (1.4-4.0); Lymphocytes % 7.7 % (21.2-54.2); Mean Corpuscular HGB Conc 31.6 GM/DL (32-36); Mean Platelet Volume 10.7 FL (9.6-12.0); Monocytes % 7.3 % (1.7-12.7); Neutrophils % 82.4 % (38.7-73.9); Platelet Count 181 T/CUMM (130-400); Red Blood Count 3.23 MC/CUMM (3.8-5.5); Red Cell Distribution Width 14.8 % (9.3-17.3); White Blood Count 12.1 T/CUMM (4-12)
[2019-02-23 06:54] LABS: Calcium 9.2 MG/DL (8.5-10.1); Osmolality,Calculated 291.1 MOS/KG (273-304)
[2019-02-23] MEDS: PANTOPRAZOLE 40 MG TABLET PO SCH (08:21)
[2019-02-23] MEDS: carvediloL 12.5 MG TABLET PO SCH ×2 (08:21→18:05)
[2019-02-23] MEDS: FUROSEMIDE 40 MG TABLET PO SCH (08:21)
[2019-02-23] MEDS: INSULIN REGULAR 100 UNIT/ML SUBCUT SCH ×4 (10:55→21:27)
[2019-02-23] MEDS: SODIUM BICARB INJ 100 MEQ in STERILE WATER INJ 1,000 ML IV SCH (15:00)
[2019-02-23] MEDS: traZODone 50 MG TABLET PO SCH (21:26)
[2019-02-23] MEDS: traMADol 50 MG TABLET PO PRN (21:26)
[2019-02-23] MEDS: ROSUVASTATIN 10 MG TABLET PO SCH (21:26)
[2019-02-24 05:26] LABS: Basophils % 0.4 % (0.0-0.8); Eosinophils # 0.2 10*3/uL (0.0-0.87); Eosinophils % 2.1 % (0.00-10.9); Hematocrit 28.1 VOL% (42.0-52.0); Immature Granulocytes % 0.7 %; Immature Granulocytes Absolute 0.07 #; Lymphocytes % 9.5 % (21.2-54.2); Mean Corpuscular Volume 90.4 FL (87-102); Mean Platelet Volume 10.6 FL (9.6-12.0); Monocytes % 7.8 % (1.7-12.7); Neutrophils % 79.5 % (38.7-73.9); Platelet Count 201 T/CUMM (130-400); Red Blood Count 3.11 MC/CUMM (3.8-5.5); Red Cell Distribution Width 14.8 % (9.3-17.3); White Blood Count 10.3 T/CUMM (4-12)
[2019-02-24 05:44] LABS: Calcium 9.6 MG/DL (8.5-10.1); Osmolality,Calculated 299.1 MOS/KG (273-304)
[2019-02-24] MEDS: PIPERACILLIN/TAZOBACTAM 3,375 MG in SODIUM CHLORIDE 0.9% 100 ML IV SCH (05:44)
[2019-02-24] MEDS: FUROSEMIDE 40 MG TABLET PO SCH (09:28)
[2019-02-24] MEDS: INSULIN REGULAR 100 UNIT/ML SUBCUT SCH ×4 (09:28→20:39)
[2019-02-24] MEDS: carvediloL 12.5 MG TABLET PO SCH ×2 (09:29→18:27)
[2019-02-24] MEDS: PANTOPRAZOLE 40 MG TABLET PO SCH (09:29)
[2019-02-24] MEDS ORDERED: TUBERCULIN SKIN TEST 0.1 ML SYRINGE INTRADERM ONE (11:25)
[2019-02-24] MEDS: SODIUM BICARB INJ 100 MEQ in STERILE WATER INJ 1,000 ML IV SCH ×2 (13:34→20:46)
[2019-02-24] MEDS: LEVOFLOXACIN 250 MG TABLET PO SCH (18:27)
[2019-02-24] MEDS: ROSUVASTATIN 10 MG TABLET PO SCH (20:38)
[2019-02-24] MEDS: traZODone 50 MG TABLET PO SCH (20:38)
[2019-02-24] MEDS: traMADol 50 MG TABLET PO PRN (20:39)
[2019-02-25 08:24] LABS: Calcium 9.8 MG/DL (8.5-10.1); Osmolality,Calculated 290.4 MOS/KG (273-304)
[2019-02-25] MEDS: FUROSEMIDE 40 MG TABLET PO SCH (10:05)
[2019-02-25] MEDS: carvediloL 12.5 MG TABLET PO SCH ×2 (10:05→17:40)
[2019-02-25] MEDS: PANTOPRAZOLE 40 MG TABLET PO SCH (10:05)
[2019-02-25] MEDS: LEVOFLOXACIN 250 MG TABLET PO SCH (10:05)
[2019-02-25] MEDS: SODIUM BICARB INJ 100 MEQ in STERILE WATER INJ 1,000 ML IV SCH (10:06)
[2019-02-25] MEDS: INSULIN REGULAR 100 UNIT/ML SUBCUT SCH ×4 (10:06→21:17)
[2019-02-25] MEDS: ROSUVASTATIN 10 MG TABLET PO SCH (21:17)
[2019-02-25] MEDS: SODIUM BICARBONATE 650 MG TABLET PO SCH (21:17)
[2019-02-25] MEDS: traZODone 50 MG TABLET PO SCH (21:17)
[2019-02-26] MEDS: SODIUM BICARBONATE 650 MG TABLET PO SCH (09:56)
[2019-02-26] MEDS: FUROSEMIDE 40 MG TABLET PO SCH (09:57)
[2019-02-26] MEDS: PANTOPRAZOLE 40 MG TABLET PO SCH (09:57)
[2019-02-26] MEDS: LEVOFLOXACIN 250 MG TABLET PO SCH (09:57)
[2019-02-26] MEDS: carvediloL 12.5 MG TABLET PO SCH (09:57)
[2019-02-26] MEDS: INSULIN REGULAR 100 UNIT/ML SUBCUT SCH ×2 (09:57→11:27)
[2019-02-26 11:33] VITALS: BP 166/75
[2019-02-26] MEDS ORDERED: FUROSEMIDE 40 MG TABLET PO SCH (16:00)
== END 2019-02-26 14:22 | disposition hospice, home (50) | DRG 445 ==
LOC: N.EDINP 02:23 → N.ED 02:23 → SUATTDRO 05:38 → N.2W 06:49 → SUATTDRO 11:09 → N.3E 17:16
PROVIDERS: ADMIT Internal Medicine; ATTEND Internal Medicine Cardiovascular Disease

== ENCOUNTER 2019-04-21 12:16 | Observation (INO) ==
[2019-04-21 14:06] LABS: Basophils # 0.1 10*3/uL (0.0-0.2); Basophils % 0.6 % (0.0-0.8); Eosinophils # 0.2 10*3/uL (0.0-0.87); Eosinophils % 2.2 % (0.00-10.9); Hemoglobin 7.9 GM/DL (14.0-18.0); Immature Granulocytes % 0.5 %; Immature Granulocytes Absolute 0.05 #; Mean Corpuscular HGB Conc 31.6 GM/DL (32-36); Mean Corpuscular Volume 92.9 FL (87-102); Mean Platelet Volume 10.4 FL (9.6-12.0); Monocytes % 7.5 % (1.7-12.7); Neutrophils % 80.2 % (38.7-73.9); Platelet Count 288 T/CUMM (130-400); Red Blood Count 2.69 MC/CUMM (3.8-5.5); Red Cell Distribution Width 15.3 % (9.3-17.3)
[2019-04-21 14:15] LABS: INR 1.1; PT Patient Result 11.7 SECS (9.6-12.2); Partial Thromboplastin Time 30.3 SECS (20.8-36.0)
[2019-04-21 14:29] LABS: Alanine Aminotransferase 9 U/L (16-61); Albumin 2.7 G/DL (3.4-5.0); Alkaline Phosphatase 115 U/L (45-117); Aspartate Amino Transferase 4 U/L (0-37); Blood Urea Nitrogen 59 MG/DL (7-18); Calcium 9.8 MG/DL (8.5-10.1); Estimated Glom Filtration Rate 10 ML/MIN; Glucose 182 MG/DL (74-106); Total Protein 6.6 G/DL (6.4-8.3)
[2019-04-21 14:31] LABS: Troponin I 0.058 NG/ML (0.00-0.045)
[2019-04-21 15:00] LABS: Apearance,Urine CLEAR (Clear); Bilirubin,Urine Negative (Negative); Blood, Urine Small mg/dL (Negative); Glucose,Urine (UA) >=500 mg/dL (Negative); Ketones,Urine Negative (Negative); Mucus,Urine Occasional /LPF (Occasional); Nitrite,Urine Negative (Negative); Protein,Urine 100 MG/DL; RBC,Urine <1 /HPF (0-4); Urine Color Yellow (Yellow); Urine Urobilinogen < 2.0 EU/DL (0.2-1.0); WBC,Urine 1 /HPF (0-6)
[2019-04-21] MEDS ORDERED: ONDANSETRON 4 MG/2 ML VIAL IV PRN (16:26)
[2019-04-21] MEDS ORDERED: LACTULOSE 20 GM/30 ML UDCUP PO PRN (16:26)
[2019-04-21] MEDS ORDERED: ZALEPLON 5 MG CAPSULE PO PRN (16:30)
[2019-04-21] MEDS ORDERED: SODIUM CHLORIDE 0.9% 1,000 ML IV PRN (16:30)
[2019-04-21] MEDS ORDERED: GLUCAGON 1 MG VIAL IM PRN (16:31)
[2019-04-21] MEDS ORDERED: DEXTROSE 50% 25 GM/50 ML VIAL IV PRN (16:31)
[2019-04-21] MEDS ORDERED: hydrALAZINE 20 MG/1 ML VIAL IV ONE (17:56)
[2019-04-21] MEDS ORDERED: hydrALAZINE 20 MG/1 ML VIAL IV PRN (17:56)
[2019-04-21] MEDS ORDERED: traMADol 50 MG TABLET PO PRN (20:23)
[2019-04-21] MEDS ORDERED: ROSUVASTATIN 20 MG TABLET PO SCH (21:00)
[2019-04-21] MEDS ORDERED: traZODone 50 MG TABLET PO SCH (21:00)
[2019-04-21] MEDS: INSULIN LISPRO 100 UNIT/ML SUBCUT SCH (21:48)
[2019-04-21] MEDS: PROBENECID 500 MG TABLET PO SCH (22:59)
[2019-04-22 05:25] LABS: Basophils # 0.1 10*3/uL (0.0-0.2); Basophils % 0.6 % (0.0-0.8); Eosinophils # 0.3 10*3/uL (0.0-0.87); Eosinophils % 2.4 % (0.00-10.9); Hematocrit 28.7 VOL% (42.0-52.0); Hemoglobin 9.5 GM/DL (14.0-18.0); Immature Granulocytes % 0.4 %; Immature Granulocytes Absolute 0.04 #; Lymphocytes # 1.1 10*3/uL (1.4-4.0); Lymphocytes % 10.6 % (21.2-54.2); Mean Corpuscular HGB Conc 33.1 GM/DL (32-36); Mean Corpuscular Volume 89.1 FL (87-102); Mean Platelet Volume 10.6 FL (9.6-12.0); Monocytes % 8.3 % (1.7-12.7); Neutrophils % 77.7 % (38.7-73.9); Platelet Count 265 T/CUMM (130-400); Red Blood Count 3.22 MC/CUMM (3.8-5.5); White Blood Count 10.7 T/CUMM (4-12)
[2019-04-22 06:04] LABS: Alanine Aminotransferase < 9 U/L (16-61); Albumin 2.5 G/DL (3.4-5.0); Alkaline Phosphatase 92 U/L (45-117); Aspartate Amino Transferase 8 U/L (0-37); Blood Urea Nitrogen 62 MG/DL (7-18); Calcium 9.9 MG/DL (8.5-10.1); Estimated Glom Filtration Rate 10 ML/MIN; Glucose 106 MG/DL (74-106); Osmolality,Calculated 292.7 MOS/KG (273-304); Total Protein 6.2 G/DL (6.4-8.3)
[2019-04-22] MEDS: INSULIN LISPRO 100 UNIT/ML SUBCUT SCH (07:37)
[2019-04-22] MEDS ORDERED: carvediloL 12.5 MG TABLET PO SCH (08:00)
[2019-04-22] MEDS ORDERED: INSULIN ASPART PROTAMINE/ASPART 70/30 100 UNIT/ML SUBCUT SCH ×2 (08:00→17:00)
[2019-04-22 08:14] VITALS: BP 171/61
[2019-04-22] MEDS ORDERED: FUROSEMIDE 40 MG TABLET PO SCH (09:00)
[2019-04-22] MEDS: PROBENECID 500 MG TABLET PO SCH (11:06)
== END 2019-04-22 11:14 | disposition home health service (06) ==
LOC: N.ED 12:16 → N.EDINP 12:16 → N.2E 17:29
PROVIDERS: ADMIT Internal Medicine; ATTEND Internal Medicine

== ENCOUNTER 2019-05-27 18:45 | Inpatient (IN) ==
[2019-05-27] MEDS ORDERED: SODIUM CHLORIDE 0.9% 2,000 ML IV STA (20:39)
[2019-05-27 20:40] LABS: Basophils # 0.1 10*3/uL (0.0-0.2); Basophils % 0.8 % (0.0-0.8); Eosinophils # 0.3 10*3/uL (0.0-0.87); Eosinophils % 2.4 % (0.00-10.9); Hematocrit 29.2 VOL% (42.0-52.0); Hemoglobin 9.2 GM/DL (14.0-18.0); Immature Granulocytes % 0.7 %; Immature Granulocytes Absolute 0.08 #; Lymphocytes % 8.5 % (21.2-54.2); Mean Corpuscular HGB Conc 31.5 GM/DL (32-36); Mean Corpuscular Volume 94.2 FL (87-102); Mean Platelet Volume 10.9 FL (9.6-12.0); Monocytes % 7.7 % (1.7-12.7); Neutrophils % 79.9 % (38.7-73.9); Platelet Count 259 T/CUMM (130-400); Red Cell Distribution Width 16.2 % (9.3-17.3); White Blood Count 11.6 T/CUMM (4-12)
[2019-05-27 20:59] LABS: Albumin 2.9 G/DL (3.4-5.0); Bilirubin,Total 0.7 MG/DL (0.2-1.0); Calcium 9.8 MG/DL (8.5-10.1); Total Protein 6.9 G/DL (6.4-8.3)
[2019-05-27 21:14] LABS: Amorphous Crystals,Urine Occasional /HPF (Few); Apearance,Urine CLEAR (Clear); Bilirubin,Urine Negative (Negative); Blood, Urine Small mg/dL (Negative); Glucose,Urine (UA) >=500 mg/dL (Negative); Ketones,Urine Negative (Negative); Mucus,Urine Occasional /LPF (Occasional); Nitrite,Urine Negative (Negative); Protein,Urine 100 MG/DL; RBC,Urine 2 /HPF (0-4); Urine Color Yellow (Yellow); Urine Urobilinogen < 2.0 EU/DL (0.2-1.0); WBC,Urine 2 /HPF (0-6)
[2019-05-27 21:27] LABS: CKMB % 5.8 %; Troponin I 0.084 NG/ML (0.00-0.045)
[2019-05-27] MEDS ORDERED: DOCUSATE SODIUM 100 MG CAPSULE PO PRN (22:29)
[2019-05-27] MEDS ORDERED: GLUCAGON 1 MG VIAL IM PRN (22:29)
[2019-05-27] MEDS ORDERED: ONDANSETRON 4 MG/2 ML VIAL IV PRN (22:29)
[2019-05-27] MEDS ORDERED: DEXTROSE 50% 25 GM/50 ML SYRINGE IV PRN (22:29)
[2019-05-27] MEDS ORDERED: SODIUM CHLORIDE 0.9% 1,000 ML IV SCH (22:30)
[2019-05-27] MEDS ORDERED: ENOXAPARIN 30 MG/0.3 ML SYRINGE SUBCUT SCH (22:30)
[2019-05-27] MEDS ORDERED: DEXTROSE 10% 250 ML BAG IV PRN (22:49)
[2019-05-28] MEDS: cefTRIAXone 1,000 MG in SYRINGE 1 EACH IV SCH (00:46)
[2019-05-28 00:49] LABS: Basophils # 0.1 10*3/uL (0.0-0.2); Basophils % 0.8 % (0.0-0.8); Eosinophils # 0.3 10*3/uL (0.0-0.87); Hematocrit 27.7 VOL% (42.0-52.0); Hemoglobin 8.7 GM/DL (14.0-18.0); Immature Granulocytes % 0.5 %; Immature Granulocytes Absolute 0.06 #; Lymphocytes # 0.9 10*3/uL (1.4-4.0); Lymphocytes % 7.7 % (21.2-54.2); Mean Corpuscular HGB Conc 31.4 GM/DL (32-36); Mean Corpuscular Volume 93.6 FL (87-102); Monocytes % 9.2 % (1.7-12.7); Neutrophils % 78.8 % (38.7-73.9); Platelet Count 253 T/CUMM (130-400); Red Blood Count 2.96 MC/CUMM (3.8-5.5); Red Cell Distribution Width 16.3 % (9.3-17.3)
[2019-05-28 01:04] LABS: Calcium 9.8 MG/DL (8.5-10.1); Osmolality,Calculated 295.1 MOS/KG (273-304)
[2019-05-28] MEDS: INSULIN LISPRO 100 UNIT/ML SUBCUT SCH ×5 (02:15→20:57)
[2019-05-28] MEDS ORDERED: FUROSEMIDE 40 MG TABLET PO SCH (09:00)
[2019-05-28] MEDS ORDERED: PANTOPRAZOLE 40 MG TABLET PO SCH (09:00)
[2019-05-28] MEDS: APIXABAN 2.5 MG TABLET PO SCH ×2 (09:29→21:00)
[2019-05-28] MEDS: carvediloL 12.5 MG TABLET PO SCH ×2 (09:29→16:53)
[2019-05-28] MEDS: ASPIRIN EC 81 MG TABLET PO SCH (09:29)
[2019-05-28] MEDS: ACETAMINOPHEN 325 MG TABLET PO PRN ×3 (09:31→22:58)
[2019-05-28] MEDS: FUROSEMIDE 40 MG/4 ML VIAL IV SCH (17:44)
[2019-05-28] MEDS ORDERED: ROSUVASTATIN 10 MG TABLET PO SCH (21:00)
[2019-05-29] MEDS: ACETAMINOPHEN 325 MG TABLET PO PRN ×2 (03:06→09:26)
[2019-05-29] MEDS ORDERED: diphenhydrAMINE 2% CREAM 28 GM TUBE TOP PRN (03:19)
[2019-05-29 06:58] LABS: Basophils # 0.1 10*3/uL (0.0-0.2); Basophils % 0.9 % (0.0-0.8); Eosinophils # 0.3 10*3/uL (0.0-0.87); Eosinophils % 3.9 % (0.00-10.9); Hematocrit 26.2 VOL% (42.0-52.0); Hemoglobin 8.2 GM/DL (14.0-18.0); Immature Granulocytes % 0.3 %; Immature Granulocytes Absolute 0.03 #; Lymphocytes # 1.3 10*3/uL (1.4-4.0); Lymphocytes % 14.7 % (21.2-54.2); Mean Corpuscular HGB Conc 31.3 GM/DL (32-36); Mean Corpuscular Volume 94.2 FL (87-102); Mean Platelet Volume 11.1 FL (9.6-12.0); Monocytes % 7.2 % (1.7-12.7); Platelet Count 224 T/CUMM (130-400); Red Blood Count 2.78 MC/CUMM (3.8-5.5); Red Cell Distribution Width 16.6 % (9.3-17.3); White Blood Count 8.6 T/CUMM (4-12)
[2019-05-29 07:16] LABS: Calcium 9.4 MG/DL (8.5-10.1); Osmolality,Calculated 304.4 MOS/KG (273-304)
[2019-05-29 07:36] LABS: Vitamin B12 805 PG/ML (211-911)
[2019-05-29 08:37] LABS: Sedimentation Rate-Westergren 80 MM/HR (0-20)
[2019-05-29] MEDS: APIXABAN 2.5 MG TABLET PO SCH (09:26)
[2019-05-29] MEDS: carvediloL 12.5 MG TABLET PO SCH (09:26)
[2019-05-29] MEDS: INSULIN LISPRO 100 UNIT/ML SUBCUT SCH ×2 (09:26→12:42)
[2019-05-29] MEDS: FUROSEMIDE 40 MG/4 ML VIAL IV SCH (09:26)
[2019-05-29] MEDS: ASPIRIN EC 81 MG TABLET PO SCH (09:26)
[2019-05-29] MEDS: cefTRIAXone 1,000 MG in SYRINGE 1 EACH IV SCH (09:40)
[2019-05-29 16:13] VITALS: BP 144/72
[2019-05-31 09:20] LABS: Hemoglobin A1 (Alkaline) 97.2 % (96.5-98.5); Hemoglobin A2 (Alkaline) 2.8 % (1.5-3.5)
== END 2019-05-29 17:28 | disposition home or self-care (01) | DRG 683 ==
LOC: N.ED 18:45 → SUATTDRO 22:29 → N.EDINP 22:29 → N.2E 23:29
PROVIDERS: ADMIT Internal Medicine; ATTEND Internal Medicine